=== PATIENT | female | born 1970 | race Caucasian/White ===

== ENCOUNTER → 2024-12-05 15:49 | Outpatient (BNVA) | payer OTHER, SELFPAY | PROVIDERS: PCP Internal Medicine; Visit Provider Physician Assistant Medical ==

== ENCOUNTER → 2024-12-05 15:49 | Outpatient (AMB) | payer OTHER, SELFPAY ==
--- NOTE | 2024-12-05 15:47 | MHC.PC.OV ---
Vital Signs 12/05/24 16:14 Height 64 ft Weight 133 lb BMI 0.2 BP 124/78 Blood Pressure Location Rt brachial Pulse 86 Pulse Source Pulse Oximeter Temp 97.3 F Pulse Oximetry (%) 96 Intake Visit Reasons: physical Intake Note: no other complaints Allergies No Known Allergies Allergy (Verified 12/05/24 16:55) Medication List - Last Reconciled 12/05/24 by Akanksha Rocha PA-C bupropion HCl XL (Wellbutrin XL) 300 mg PO QAM lorazepam 1 mg PO DAILY PRN omeprazole 40 mg PO DAILY progesterone micronized 100 mg PO QAM sertraline 100 mg PO DAILY spironolactone 50 mg PO DAILY zolpidem 10 mg PO BEDTIME PRN PFSH Medical History (Updated 12/05/24 @ 16:58 by Akanksha Rocha PA-C) IBS (irritable bowel syndrome) Insomnia Depression Anxiety Physical exam (Primary Care) Vital Signs: Last Vital Signs Temp 97.3 F 12/05/24 16:14 Pulse 86 12/05/24 16:14 BP 124/78 12/05/24 16:14 Pulse Ox 96 12/05/24 16:14 Care Plan Goal for BP management: <130/80 at goal BMI result Body Mass Index 0.2 Coding Level of Care Code Est Pt Prev Care 40-64y(66234) Diagnoses Anxiety F41.9 Depression F32.A Insomnia G47.00 IBS (irritable bowel syndrome) K58.9 Assessment & Plan Assessment & Plan (1) Anxiety: Code(s): F41.9 - Anxiety disorder, unspecified Category: Medical Plan: Refill Sertraline HCl Tablet, 100 MG, 1 tablet, Orally, Once a day, 90 days, 90 Tablet,Refills 1 Continue buPROPion HCl ER (XL) Tablet Extended Release 24 Hour, 300 MG, 1 tablet in the morning, Orally, Once a day Continue LORazepam Tablet, 1 MG, 1 tablet as needed, Orally, Twice a day Continue Ondansetron HCl Tablet, 4 MG, 1 tablet as needed, Orally, Twice a day Condition is chronic and stable. Will continue to monitor (2) Depression: Code(s): F32.A - Depression, unspecified Category: Medical Plan: Continue above medications that are used for anxiety as well. Patient also seen therapist/psychiatrist. Will continue to monitor. (3) Insomnia: Code(s): G47.00 - Insomnia, unspecified Category: Medical Plan: Continue Zolpidem Tartrate Tablet, 10 MG, 1 tablet at bedtime as needed, Orally, Once a day Condition is chronic and stable will continue to monitor. (4) IBS (irritable bowel syndrome): Code(s): K58.9 - Irritable bowel syndrome, unspecified Category: Medical Plan: Condition is chronic and stable will continue to monitor. Plan Plan - Continue current psychiatric medications sertraline, bupropion, lorazepam) and Zofran as needed for anxiety-induced nausea. - Maintain current Climara patch regimen and progesterone for menopausal symptoms. - Refill prescriptions for lorazepam and zolpidem as per current dosage. - Order comprehensive blood work including CBC, comprehensive metabolic panel, HbA1c, lipid panel, liver function tests, magnesium level, vitamin D, vitamin and folate, and thyroid function tests to establish baseline and check for abnormalities. Orders: Orders Complete Blood Count Auto Diff Today Z00.00 - Encounter for general adult medical examination without abnormal findings Magnesium Today Z00.00 - Encounter for general adult medical examination without abnormal findings Vitamin B12 and Folate Today Z00.00 - Encounter for general adult medical examination without abnormal findings Vitamin D 25-OH Total Today Z00.00 - Encounter for general adult medical examination without abnormal findings Comprehensive [place]. Panel Fast Today Z00.00 - Encounter for general adult medical examination without abnormal findings Hemoglobin A1c Today Z00.00 - Encounter for general adult medical examination without abnormal findings Lipid Panel Today Z00.00 - Encounter for general adult medical examination without abnormal findings Liver Panel Today Z00.00 - Encounter for general adult medical examination without abnormal findings TSH reflex Free T4 Today Z00.00 - Encounter for general adult medical examination without abnormal findings Medications: New lorazepam 1 mg PO DAILY PRN 30 tabs 0RF anxiety zolpidem 10 mg PO BEDTIME PRN 30 tabs 0RF anxiety Patient Instructions: Patient Instructions - Continue all psychiatric and menopause medications as prescribed. - Fast before blood tests and visit any [facility] [place] facility for completion. - Contact the practice through the patient portal for any concerns or prescription needs. - Schedule an annual follow-up visit unless any new symptoms arise. - Support mental health with continued therapy sessions as planned. Scribe Plan - Not visible on output: History of Present Illness The patient is a 54-year-old female presenting with an annual physical examination. The patient has a history of anxiety, depression, irritable bowel syndrome with constipation, insomnia, and recent onset of menopausal symptoms. She acknowledges that her gastrointestinal symptoms and insomnia are exacerbated by anxiety. Her psychiatric conditions are managed with medications including sertraline, bupropion, lorazepam, and additional Zofran for severe episodes of anxiety that induce nausea. Menopausal symptoms are managed with Climara (estradiol) patches and oral progesterone for 12 days at the beginning of the month. She regularly undergoes mammograms, with the most recent indicating normal results. In the past, she has also had a colonoscopy and more recently completed a Cologuard test. She recently resumed all medications after attempting to discontinue them, reporting an improvement in her state since medication resumption. Social History - , has children, one currently undergoing gender transition and living with father. - Engages in therapy sessions via telehealth through [email or web address]. - Uses [facility] for prescription fulfillment and has [facility] as a secondary pharmacy. Review of Systems - Psychiatric: Reports anxiety and insomnia. - Gastrointestinal: Reports constipation associated with Irritable Bowel Syndrome. - General: Denies any new changes since medication adjustments. Physical Exam Appearance: Alert. Oriented X3. No acute distress. Head: Normal external exam. Normocephalic. Atraumatic. Eyes: Pupils are equal, round, and reactive to light. Extraocular movements intact. Conjunctiva and sclera normal. Eyelids normal. Ears: External auditory canal normal. Tympanic membranes normal. Throat: Pharynx normal. Uvula midline. Moist mucous membranes. Neck: Normal inspection. Neck supple. Full range of motion. No adenopathy. Thyroid Normal. No meningeal signs. No neck mass noted. Cardiovascular: Normal heart rate and rhythm. Heart sound normal. No murmurs noted. Pulses normal throughout. Respiratory: No respiratory distress. Painless inspiration. Breath sounds normal. No wheezes/rales/rhonchi noted. Chest nontender. No accessory muscle usage noted or decreased air movement noted. Abdomen: Soft and nontender. Bowel sounds normal in all 4 quadrants. No distention noted. No organomegaly noted. No visible injury noted. Back: No costovertebral angle tenderness. Full range of motion noted. Skin: Skin warm and dry. Normal skin color. Normal skin turgor. No rashes/lesions/lacerations noted. Extremities: No lower extremity edema. Extremities exhibit normal range of motion. Extremities nontender. Neuro: Oriented X 3. No motor deficit. No sensory deficit. Reflexes normal. Plan - Continue current psychiatric medications sertraline, bupropion, lorazepam) and Zofran as needed for anxiety-induced nausea. - Maintain current Climara patch regimen and progesterone for menopausal symptoms. - Refill prescriptions for lorazepam and zolpidem as per current dosage. - Order comprehensive blood work including CBC, comprehensive metabolic panel, HbA1c, lipid panel, liver function tests, magnesium level, vitamin D, vitamin and folate, and thyroid function tests to establish baseline and check for abnormalities. Patient was informed and verbally consented to the use of an ambient scribe for clinic note documentation during this visit. Discussion Notes I discussed the management of anxiety, IBS, and insomnia with the patient, affirming the continuation of her current regimen due to the positive impact on her symptoms. Similarly, we reviewed her regimen for menopausal symptoms, and patient agreed to maintain the current hormone replacement therapy. Blood work was ordered to evaluate the patient?s overall health and monitor for any deficiencies or abnormalities. We discussed the importance of fasting before blood tests and ensured her prescriptions would be refilled at [facility]. Additionally, I addressed the support the patient is extending to her child undergoing gender transition, emphasizing the need for continual dialogue and emotional support. Patient Instructions - Continue all psychiatric and menopause medications as prescribed. - Fast before blood tests and visit any [facility] facility for completion. - Contact the practice through the patient portal for any concerns or prescription needs. - Schedule an annual follow-up visit unless any new symptoms arise. - Support mental health with continued therapy sessions as planned.
[2024-12-05 16:14] VITALS: BP 124/78; PULSE 86; TEMP 36.3; O2SAT 96
--- OUTSIDE RECORDS SUMMARY | 2024-12-05 17:34 | XMS_ITS ---
Author Organization Ovrille Valenzuela DO, FACP Address [address], [place] [id number] Care Team Providers Care Pillar Worker Name Role Phone Orville Valenzuela Primary Care Provider REASON FOR VISIT Message MEDICATIONS Medication SIG (Take, Route, Fr equency, Duration) Notes Start Date End Date Status Scopolamine 1 MG/3DAYS 1 patch to skin b ehind the ear as needed Transdermal Once every 3 days for 30 day(s) 11/05/2024 Active SOCIAL HISTORY Sex Assigned At : Social History Observation Description Sex Assigned At Female Encounters Encounter Location Date Provider Diagnosis Orville Valenzuela DO, FACP [address] [place] [phone] 11/05/2024 Orville Valenzuela PLAN OF TREATMENT Medication Medication Name Sig Start Date Stop Date Notes Scopolamine 1 MG/3DAYS 1 patch to skin b ehind the ear as needed Transdermal Once every 3 days for 30 day(s) 11/05/2024
--- OUTSIDE RECORDS SUMMARY | 2024-12-05 17:34 | XMS_ITS ---
Author Organization Orville Valenzuela DO, FACP Address [address], [place] [id number] Care Team Providers Care Prenatal Nurse Name Role Phone Orville Valenzuela Primary Care Provider [phone] SOCIAL HISTORY Sex Assigned At : Social History Observation Description Sex Assigned At Female Encounters Encounter Location Date Provider Diagnosis Orville Valenzuela DO, FACP [address] [place] [phone] 12/04/2024 Orville Valenzuela PLAN OF TREATMENT No Information
--- OUTSIDE RECORDS SUMMARY | 2024-12-05 17:34 | XMS_ITS ---
Author Organization Orville Valenzuela DO, FAC Address [address], [place] [id number] Care Team Providers Care Glass Mold Repairer Name Role Phone Orville Valenzuela Primary Care Provider ALLERGIES No Known Allergies REASON FOR VISIT 3 month f/u, Follow up anxiety MEDICATIONS Medication SIG (Take, Route, Frequency, Duration) Notes Start Date End Date Status buPROPion HCl ER (XL) 300 MG 1 tablet in the morning Orally Once a day 06/04/2024 Active LORazepam 1 MG 1 tablet as needed Orally Twice a day 06/04/2024 Active Spironolactone 25 MG 1 tablet Orally Onc e a day Active Ondansetron HCl 4 MG 1 tablet as needed Orally Twice a day 06/04/2024 Active Zolpidem Tartrate 10 MG 1 tablet at bedt mario as needed Orally Once a day 06/04/2024 Active Sertraline HCl 100 MG 1 tablet Orally On ce a day for 90 days 06/04/2024 Active SOCIAL HISTORY Tobacco Use: Social History Observation Description Date Details (start date - stop date) Never Smoker NA - NA Sex Assigned At : Social History Observation Description Sex Assigned At Female Tobacco Use/Smoking Question Answer Notes Patient is a nonsmoker Additional Findings: Tobacco Non-User Cu rrent non-smoker, currently using no form of tobacco Alcohol Screen Question Answer Notes Did you have a drink contain ing alcohol in the past year? Yes How often did you have a dri nk containing alcohol in the past year? 2 to 4 times a month (2 points) How many drinks did you have on a typical day when you were drinking in the past year? 1 or 2 drinks (0 point) How often did you have 6 or more drinks on one occasion in the past year? Never (0 point) Points 2 Interpretation Negative Encounters Encounter Location Date Provider Diagnosis Orville Valenzuela DO, [address] [phone] 09/24/2024 Orville Valenzuela Anxiety F41.9 and Psychophysiological insomnia F51.04 ASSESSMENTS Encounter Date Diagnosis Assessment Notes Treatment Notes Treatment Clinical Notes 09/24/2024 Anxiety (ICD-10 - F41.9) 09/24/2024 Psychophysiological insomnia (ICD-10 - F51.04) PLAN OF TREATMENT Medication Medication Name Sig Start Date Stop Date Notes buPROPion HCl ER (XL) 300 MG 1 tablet in the morning Orally Once a day 06/04/2024 LORazepam 1 MG 1 tablet as needed O rally Twice a day 06/04/2024 Spironolactone 25 MG 1 tablet Orally Once a day Ondansetron HCl 4 MG 1 tablet as needed Orally Twice a day 06/04/2024 Zolpidem Tartrate 10 MG 1 tablet at bedt mario as needed Orally Once a day 06/04/2024 Sertraline HCl 100 MG 1 tablet Orally On ce a day for 90 days 06/04/2024 Next Appt Details Follow Up: 3 Months, Reason: follow up visit Progress Notes * Examination Category Sub-Category Detail Notes General Examination GENERAL APPEARANCE: in no ac todd distress, well developed, well nourished LUNGS: breathing comfortabl y at rest PSYCH: alert, oriented, cog nitive function intact History and Physical Notes * HPI (History of Present Illness) Category Sub-Category Detail Notes New symptom(s) Telehealth Location of provider:: Pro luir's home address Location of patient:: Address listed in demographics for today's visit Patient identification confirmed using:: Name, Telehealth method:: Video co nference where patient is visible to the provider of care Consent:: Patient verbally c onsented to treatment, Patient verbally consented to billing insurance company, Patient informed of any privacy concerns related to method of visit Total time spent with patient (mins): 23 Disclaimer: This Telehealth visit is being conducted per CDC recommendations due to the COVID-19 outbreak.
--- OUTSIDE RECORDS SUMMARY | 2024-12-05 17:35 | XMS_ITS | Patient Health Record ---
Author Organization Orville Valenzuela DO, FAC Address [address] [place], [place] [phone] Care Team Providers Care Abrasive Mixer Helper Name Role Phone Orville Valenzuela Primary Care Provider ALLERGIES No Known Allergies RESULTS Component Value Reference Range Notes MAMMOGRAM, SCREENING Reviewed date:07/17/2024 12:45:47 PM Interpretation:Benign Performing Lab: Notes/Report: Benign REASON FOR REFERRAL No Information MEDICATIONS Medication SIG (Take, Route, Frequency, Duration) Notes Start Date End Date Status buPROPion HCl ER (XL) 300 MG 1 tablet in the morning Orally Once a day 06/04/2024 Active Sertraline HCl 100 MG 1 tablet Orally On ce a day for 90 days 06/04/2024 Active LORazepam 1 MG 1 tablet as needed Orally Twice a day 06/04/2024 Active Spironolactone 25 MG 1 tablet Orally Onc e a day Active Ondansetron HCl 4 MG 1 tablet as needed Orally Twice a day 06/04/2024 Active Zolpidem Tartrate 10 MG 1 tablet at bedt mario as needed Orally Once a day 06/04/2024 Active Scopolamine 1 MG/3DAYS 1 patch to skin b ehind the ear as needed Transdermal Once every 3 days for 30 day(s) 11/05/2024 Active IMMUNIZATIONS Vaccine Route Administration Date Status Comme nts COVID-19 Moderna Vaccine Unknown 08/06/2021 Administere d COVID-19 Moderna Vaccine Unknown 07/09/2021 Administere d SOCIAL HISTORY Tobacco Use: Social History Observation [...] Never (0 point) Points 2 Interpretation Negative PROBLEMS Problem Type ICD Code Onset Dates Problem Status W/U Status Risk SNOMED Code Notes Problem Anxiety (F41.9) Active confirmed 279334 02 Problem Psychophysiological insomnia (F51.04) Active confirmed [id number] Problem Hair loss (L65.9) Active confirmed 2780 34648 VITAL SIGNS Height 64.00 in 06/25/2024 Weight 130 lbs 06/04/2024 BMI 22.31 kg/m2 06/04/2024 Encounters Encounter Location Date Provider Diagnosis Orville Valenzuela DO, [address] [phone] 12/04/2024 Orville Valenzuela DO, [address] [phone] 06/04/2024 Orville Valenzuela DO, [address] [id number] 09/10/2024 Orville Valenzuela Anxiety F41.9 Orville Valenzuela DO, [address] [id number] 11/05/2024 Orville Valenzuela DO, [address] [id number] 06/04/2024 Orville Valenzuela Anxiety F41.9 and Psychophysiological insomnia F51.04 Orville Valenzuela DO, [address] [id number] 06/25/2024 Orville Valenzuela Anxiety F41.9 and Psychophysiological insomnia F51.04 Orville Valenzuela DO, [address] [id number] 09/24/2024 Orville Valenzuela Anxiety F41.9 and Psychophysiological insomnia F51.04 ASSESSMENTS Encounter Date Diagnosis Assessment Notes Treatment Notes Treatment Clinical Notes 09/10/2024 Anxiety (ICD-10 - F41.9) 06/04/2024 Anxiety (ICD-10 - F41.9) Con tinue therapy. Consider PFMLA. 06/04/2024 Psychophysiological insomnia (ICD-10 - F51.04) 06/25/2024 Anxiety (ICD-10 - F41.9) Rec ommend Metamucil, 1 capsule with a glass of water nightly Continue mental health counseling 06/25/2024 Psychophysiological insomnia (ICD-10 - F51.04) 09/24/2024 Anxiety (ICD-10 - F41.9) 09/24/2024 Psychophysiological insomnia (ICD-10 - F51.04) PLAN OF TREATMENT Pending Test Test Name Order Date PROFILE, FASTING 02/11/2023 Insurance Providers Payer Name Payer Address Payer Phone Subscriber Number Group Number Insured Name Patient Relationship to Insured Coverage Start Date Coverage End Date [employer] [address] [place], [place] [id number] [phone] [id number] [employer] Self - patient is the insured MEDICAL (GENERAL) HISTORY Medical History History ICD Code anxiety depression insomnia low back pain irritable bowel syndrome constipation tendonitis dermatitis Surgical History Surgery Date(Month/Year) umbilical hernia repair breast implants
== END ==
LOC: HO.HMCSH 15:49
PROVIDERS: PCP Internal Medicine; Visit Provider Physician Assistant Medical
DX: Z00.00 Encounter for general adult medical examination without abnormal findings (principal); F41.9 Anxiety disorder, unspecified; F32.A Depression, unspecified; G47.00 Insomnia, unspecified; K58.9 Irritable bowel syndrome, unspecified